=== PATIENT | female | born 1945 | race Caucasian/White ===

== ENCOUNTER 2020-07-10 11:22 | Outpatient (CLI) | payer MEDICARE, SELFPAY | END 2020-07-10 11:23 | disposition home or self-care (01) | LOC: CHSLAB 11:29 | PROVIDERS: PCP Family Medicine; Visit Provider Specialist | DX: C43.62 Malignant melanoma of left upper limb, including shoulder (principal) | CPT/HCPCS: 88305; 88342 ==

== ENCOUNTER → 2020-08-29 09:59 | Outpatient (CLI) | payer MEDICARE, SELFPAY ==
--- NOTE | ~2020-08-29 | MM_ITS ---
EXAMINATION: MM screening talia BI w mirna HISTORY: Screening mammogram TECHNIQUE: Craniocaudal and mediolateral oblique 3-D tomosynthesis images were obtained and synthetic 2-D images were generated. CAD analysis was submitted and interpreted. COMPARISON: , 01/22/2018, 01/03/2017 bilateral digital screening mammogram examinations BREAST PARENCHYMAL COMPOSITION: There are scattered areas of fibroglandular density. FINDINGS: There is no evidence of suspicious mass, calcification, or architectural distortion to sugg est malignancy in either breast. There has been no suspicious interval change. IMPRESSION: 1. No mammographic evidence of malignancy. 2. Recommend routine screening mammography in one year. BI-RADS Category 1: Negative Reviewed, dictated and finalized at location A. 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
== END ==
PROVIDERS: PCP Family Medicine; Visit Provider Obstetrics & Gynecology Gynecology
DX: Z12.31 Encounter for screening mammogram for malignant neoplasm of breast (principal)
CPT/HCPCS: 77063; 77067

== ENCOUNTER → 2021-10-25 13:18 | Outpatient (CLI) | payer MEDICARE, SELFPAY ==
--- NOTE | ~2021-10-25 | MM_ITS ---
EXAMINATION: MM screening talia BI w mirna HISTORY: Screening mammogram TECHNIQUE: Craniocaudal and mediolateral oblique 3-D tomosynthesis images were obtained and synthetic 2-D images were generated. Bilateral rotated lateral CC views. CAD analysis was submitted and interp reted. COMPARISON: August 29, 2020, March 03, 2019, January 22, 2018 bilateral screening mammogram examinati ons BREAST PARENCHYMAL COMPOSITION: FINDINGS: There is no evidence of suspicious mass, calcification, or architectural distortion to sugg est malignancy in either breast. There has been no suspicious interval change. IMPRESSION: 1. No mammographic evidence of malignancy. 2. Recommend routine screening mammography in one year. BI-RADS Category 1: Negative Reviewed, dictated and finalized at location A.
== END ==
PROVIDERS: PCP Family Medicine; Visit Provider Obstetrics & Gynecology Gynecology
DX: Z12.31 Encounter for screening mammogram for malignant neoplasm of breast (principal)
CPT/HCPCS: 77063; 77067

== ENCOUNTER 2022-01-02 14:49 | Outpatient (RCR) | payer MEDICARE, SELFPAY ==
--- NOTE | 2022-01-02 16:07 | PTOPEVAL ---
Thank you for referring Kym Rivas to [facility].? The patient is scheduled to be seen for therapy? __3__x/week for 12 visits. Please review, sign, date and return this plan of care EVI. I agree with and certify that the following plan of care is medically necessary. Referring Physician Date Admitting Provider: Attending Provider: Michael Gonzalez Referring Provider: *PT Outpatient Evaluation Start: 01/02/22 14:55 Freq: Status: Active Protocol: Document 01/02/22 14:55 MAY (Rec: 01/02/22 16:06 MAY [id number]) Therapy Assessment Status Assessment Status Assessment Status Evaluation Evaluation Information Problem Diagnosis ITB tendinitis of left side Onset 12/27/21 Subjective Information Pt. reports she has had on/off Query Text:As Reported By Patient/ outside knee pain since Family having knee replacement in 2019. Pt. reports that pain is most notable with steps and walking. She reports that the pain remains at the same intensity with activity. she states that she is still able to complete all IADL's despite her knee pain. She reports that she can only walk about 1 block due to pain. She has recently resorted to use of a cane for longer distance due to pain. she reports that her goal for therapy is to decraese her knee pain with activity. Prior Level of Function Activity Level (Last 3 Months) Occupation retired Hand Dominance Right Activity of Daily Living Ability Independent Indoor/Home Mobility Independent Community Mobility Independent Stairs Ability Independent Functional Cognition (Planning, Shopping Independent , Taking Medications) Cooking Yes Cleaning Yes Laundry Yes Shopping Yes Driving Yes Pain Assessment Timing of Pain Assessment Timing of Pain Assessment Pre-Treatment Pain Scale Pain Scale Used Numeric (1 - 10) Self Report Pain Assessment Left Knee(s) Reported Pain Level 0 Greatest Pain Intensity 10 Pain Aggravating Factors Exercise/Activity,Stair Climbing,Weight Bearing/
== END 2022-02-04 11:30 | disposition home or self-care (01) ==
LOC: CHSPT 14:49
DX: Z96.652 Presence of left artificial knee joint (principal); M76.32 Iliotibial band syndrome, left leg
CPT/HCPCS: 97014; 97110; 97112; 97140; 97161; G0283

== ENCOUNTER → 2022-12-11 13:26 | Outpatient (CLI) | payer MEDICARE, SELFPAY ==
--- NOTE | ~2022-12-11 | MM_ITS ---
EXAMINATION: MM screening talia BI w mirna HISTORY: Screening TECHNIQUE: Craniocaudal and mediolateral oblique 3-D tomosynthesis images were obtained and synthetic 2-D images were generated. CAD analysis was submitted and interpreted. COMPARISON: Comparison to multiple prior studies sequentially, with oldest reviewed study dated 08/24. BREAST PARENCHYMAL COMPOSITION: There are scattered areas of fibroglandular density. FINDINGS: There is no evidence of suspicious mass, calcification, or architectural distortion to sugg est malignancy in either breast. There has been no suspicious interval change. IMPRESSION: 1. No mammographic evidence of malignancy. 2. Recommend routine screening mammography in one year. BI-RADS Category 1: Negative Reviewed, dictated and finalized at location A.
== END ==
PROVIDERS: PCP Obstetrics & Gynecology Gynecology; Visit Provider Obstetrics & Gynecology Gynecology
DX: Z12.31 Encounter for screening mammogram for malignant neoplasm of breast (principal)
CPT/HCPCS: 77063; 77067

== ENCOUNTER 2023-04-13 08:16 | Outpatient (CLI) | payer MEDICARE, SELFPAY ==
--- NOTE | ~2023-04-13 | XR_ITS ---
EXAMINATION: XR foot RT min 3V DATE: 04/13/2023 08:38 INDICATION: Right foot pain. TECHNIQUE: 4 views of right foot including weightbearing views were obtained. COMPARISON: None. FINDINGS: There is medial subluxation of second proximal phalanx with respect to the metatarsal. Ther e is lateral subluxation of second metatarsal with respect to intermediate cuneiform, consistent with Lisfranc ligament tear. There is an old healed fracture of diaphysis of fourth metatarsal. There is severe osteoarthritis of first-fourth tarsometatarsal joints. There is severe osteoarthritis of the n aviculocuneiform joints and moderate osteoarthritis of talonavicular joint. There is mild osteoarthri tis of many of the interphalangeal joints. IMPRESSION: 1. Polyarticular osteoarthritis. Reviewed, dictated and finalized at location A.
== END 2023-04-13 08:17 | disposition home or self-care (01) ==
LOC: CHSIMG 08:19
PROVIDERS: PCP Family Medicine; Visit Provider Orthopaedic Surgery
DX: M79.671 Pain in right foot (principal); M19.071 Primary osteoarthritis, right ankle and foot
CPT/HCPCS: 73630

== ENCOUNTER 2023-07-16 01:52 | Day surgery (SDC) | payer MEDICARE, SELFPAY ==
--- NOTE | 2023-07-13 10:51 | PC.NURSE ---
Report to the Outpatient Waiting Room, entrance under the green pavilion located off [facility], at time __0600 on date ___07/16/23____. Planned Procedure Time: __0730 . Time changes happen often and if your time is changed the preop area will call you the afternoon before. - You and your visitor will be asked to self-screen and do not enter if you have any COVID symptoms. - A mask is optional within the hospital at this time. Patients may have clear liquids (water, carbonated beverages, clear teas, apple juice) until 3 hours prior to surgery ( 4:30AM )with a maximum of 20 ounces. - No food from midnight until time of surgery - Infants may have breast milk until 4 hours before surgery, formula 6 hours prior to surgery. - Children will be allowed to drink immediately following surgery. If applicable, please bring a bottle or sippy cup to assist with drinking. Juice, water, soda, and popsicles are readily available. For infants on formula, please bring formula the day of surgery. Pacifiers are allowed. Take the following medications with a SIP of water the morning of surgery: ____SYNTHROID DO NOT STOP ANY OF YOUR OTHER PRESCRIPTION MEDICATIONS PRIOR TO SURGERY ?EXCEPT THE FOLLOWING Medications to discontinue per physician ____ALL VITAMINS AND SUPPLEMENTS 3 DAYS PRE OP .LAST DOSE 07/12/23 Please no make-up, nail ukrainian, hairspray, perfume, deodorant, or body powder the day of surgery. No jewelry (including any body piercings) or valuables the day of surgery, leave them at home. Please take a shower or bath the night before, or the morning of, surgery with an antibacterial soap. Wear comfortable, loose fitting clothing. Children are encouraged to wear pajamas. - Jewelry must be removed prior to entering the operating room. Rings and piercings that are not removed may be cut off. - The hospital will not accept responsibility for valuables. - Please leave all valuables, including medications, at home the day of surgery. If you are going home after surgery, a licensed dinkey driver must drive you home. - NO public transportation without another adult if you receive anesthesia. - We recommend that an adult stay with you for 24 hours following discharge. - We also recommend that you do not drive, make important decision, drink alcoholic beverages, or take any drugs that were not prescribed by your health care provider for at least 24 hours after your discharge time. Follow any additional instructions given to you from your surgeon. If you or anyone in your household have experienced Covid symptoms in the past week, please notify your surgeon or the nurse liaison at the phone number below for possible testing. Telephone instructions given to ___PATIENT and asked if any additional questions and then verbalized understanding. Patient advised to call surgeon office or pre surgery nurse liaison [phone] if any additional questions.
[2023-07-13 10:56] VITALS: BMI 19.9
--- NOTE | 2023-07-14 15:28 | PM.IMHP ---
H&P: HPI History of Present Illness Date/Time: 07/14/23 15:28 Chief Complaint: right foot pain and deformity Narrative: 77yo woman c/o right foot pain. H/O previous toe surgery. Recurrence of deformity lesser toes. Problems with shoeware and activity. At risk for ulceration and infection. Review of Systems Constitutional: Constitutional: Denies fever(s) Eyes: Eyes: Denies blurry vision ENT: Reports Normal hearing present Cardiovascular: Cardiovascular: Denies chest pain and Denies dyspnea Respiratory: Respiratory: Denies dyspnea and Denies wheezing Gastrointestinal: Gastrointestinal: Denies abdominal pain Genitourinary: Genitourinary: Denies urinary urgency Musculoskeletal: Musculoskeletal: Reports as per HPI and Denies numbness Integumentary/Breasts: Skin/Breast: Denies changing lesions and Denies sores Neurologic: Reports Normal hearing present, Denies behavioral changes, Denies confusion, Denies numbness and Denies convulsions Psychiatric: Psychiatric: Denies behavioral changes, Denies confusion and Denies hallucinations Endocrine: Endocrine: Denies heat intolerance Hematologic/Lymphatic: Hematologic/Lymphatic: Denies easy bleeding Allergic/Immunologic: Allergic/Immunologic: Denies wheezing PMF Past Medical History Medical History Arthritis of foot, 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 Melanoma (~2020) Surgical History Surgical History History of left hip replacement (~2018) History of right hip replacement (~2017) Family History Family History Sibling Patient's sister is in good health, Onset Age: 64 Family history of malignant neoplasm of thyroid, Onset Age: 26 Mother Family history of malignant neoplasm of breast in first degree relative, Onset Age: 80 Grandparent Family history of throat cancer Other Family history of arthritis Family history of malignant neoplasm Social History Social History Smoking packs per day: 0.5 Smoking cigarettes per day: 10.0 Years smoked: 5 Smoking pack-years: 2.50 Smoking status: Former smoker Tobacco type: cigarettes Smoking end date: 07/06/95 Alcohol intake: current Alcohol use details: rarely Substance use: never Living arrangements: with family Occupation/Education: occupation 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 Gender identity (if verbalized by the patient): Female Spiritual care concerns: No Meds Home Medications and Allergies Home Medications Medication Instructions Recorded Confirmed Type calcium carbonate 600 mg-vitamin 1 tablet PO DAILY 07/13/23 07/13/23 History D3 10 mcg (400 unit) tablet (Calcium 600 + D(3)) celecoxib 100 mg capsule (Celebrex) 100 mg PO PRN PRN Pain 07/13/23 07/13/23 History coQ10 (ubiquinol) 200 mg capsule 200 mg PO DAILY 07/13/23 07/13/23 History cranberry 400 mg capsule 400 mg PO DAILY 07/13/23 07/13/23 History levothyroxine 75 mcg tablet 75 mcg PO DAILY 07/13/23 07/13/23 History (Synthroid) lysine 500 mg tablet 400 mg PO DAILY 07/13/23 07/13/23 History tramadol 50 mg tablet 50 mg PO PRN PRN Pain 07/13/23 07/13/23 History turmeric 400 mg capsule 400 mg PO DAILY 07/13/23 07/13/23 History vit A 7,160 unit-vit C 113 mg-vit 1 tablet PO DAILY 07/13/23 07/13/23 History E 100 sxva-vwad-wseczh tablet Allergies Allergy/AdvReac Type Severity Reaction Status Date / Time No Known Allergies Allergy Unverified 07/13/23 10:34 Exam Const: General: healthy appearing; No in distress or confusion Orientation/consciousness: oriented to person, oriented to place, oriented to time and No confusion HENMT: Head: normal to inspection, normocephalic and atraumatic Eyes: Conjunctivae: conj
[2023-07-16] VITALS (7 sets, daily range): BP systolic 114–134; BP diastolic 57–69; PULSE 64–72; RESP 12–18; TEMP 36.9–37.1; O2SAT 99–100
--- NOTE | ~2023-07-16 | XR_ITS ---
EXAMINATION: XR surgery orthopedic DATE: 07/16/2023 08:58 INDICATION: Right forefoot arthritis. TECHNIQUE: 4 intraoperative spot fluoroscopic views of the right foot were obtained. I was not presen t. Fluoroscopy exposure time was 14 seconds. COMPARISON: Right foot radiographs 04/13/2023 FINDINGS: There are changes of resection of the heads of the second-fifth metatarsals. There are mann ges of bladder sections at the second-fifth proximal interphalangeal joints. There are wires through the second-fifth rays. IMPRESSION: 1. Bone resections at the second-fifth metatarsophalangeal joints and proximal interphalangeal joints with wire fixation. Reviewed, dictated and finalized at location A. ETER
[2023-07-16] MEDS: KETOROLAC 15 MG/ML VIAL (*BKC) IV PUSH (06:49)
[2023-07-16] MEDS: LACTATED RINGERS 1,000 ML 30 ML IV CONT ×2 (06:49→09:10)
[2023-07-16] MEDS: ACETAMINOPHEN 500 MG TABLET 1000 MG PO (06:49)
--- NOTE | 2023-07-16 06:58 | WPDHPUPDATE1 ---
History and Physical Update Update Date/Time: 07/16/23 06:58 History and Physical has been reviewed, including an updated exam of the patient. There are NO changes in the patient's condition. Risks, benefits, and alternatives have been discussed and questions answered. Patient agrees to proceed with procedure.
--- NOTE | 2023-07-16 07:12 | WPDANESEPPF ---
Anes - Initial Pre Proc Eval Procedure: Operation Date: 07/16/23 07:30 Proposed Procedures p Right Foot Metatarsal Head Resection Two-Five, - Justin Tobar MD s Proximal Interphalangeal Arthrodesis Toes Two-Five - Justin Tobar MD Date/Time: 07/16/23 07:12 Surgeon: Justin Tobar MD Pre Op Diagnosis: arthritis right foot forefoot Patient Data Age: 78 Gender: F Height: 1.52 m Weight: 47 kg Last Vital Signs Temp 36.9 C 07/16/23 06:21 Pulse 65 07/16/23 06:21 Resp 18 07/16/23 06:21 BP 114/57 L 07/16/23 06:21 Pulse Ox 100 07/16/23 06:21 O2 Del Method Room Air 07/16/23 06:21 Allergies Allergy/AdvReac Type Severity Reaction Status Date / Time No Known Allergies Allergy Unverified 07/16/23 06:56 Home Medications Medication Instructions Recorded Confirmed Type calcium carbonate 600 mg-vitamin 1 tablet PO DAILY 07/13/23 07/16/23 History D3 10 mcg (400 unit) tablet (Calcium 600 + D(3)) celecoxib 100 mg capsule (Celebrex) 100 mg PO PRN PRN Pain 07/13/23 07/16/23 History coQ10 (ubiquinol) 200 mg capsule 200 mg PO DAILY 07/13/23 07/16/23 History cranberry 400 mg capsule 400 mg PO DAILY 07/13/23 07/16/23 History levothyroxine 75 mcg tablet 75 mcg PO DAILY 07/13/23 07/16/23 History (Synthroid) lysine 500 mg tablet 400 mg PO DAILY 07/13/23 07/16/23 History tramadol 50 mg tablet 50 mg PO PRN PRN Pain 07/13/23 07/16/23 History turmeric 400 mg capsule 400 mg PO DAILY 07/13/23 07/16/23 History vit A 7,160 unit-vit C 113 mg-vit 1 tablet PO DAILY 07/13/23 07/16/23 History E 100 hhzz-fukz-bqgyqx tablet Patient hx anesthesia problems: post op nausea/vomiting Family hx anesthesia problems: none Results Review: All pre-operative results and documents have been reviewed as part of the pre-operative evaluation. 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 Melanoma (~2020) Surgical History Surgical History History of left hip replacement (~2018) History of right hip replacement (~2017) Family History Family History Sibling Patient's sister is in good health, Onset Age: 64 Family history of malignant neoplasm of thyroid, Onset Age: 26 Mother Family history of malignant neoplasm of breast in first degree relative, Onset Age: 80 Grandparent Family history of throat cancer Other Family history of arthritis Family history of malignant neoplasm Social History Social History Smoking packs per day: 0.5 Smoking cigarettes per day: 10.0 Years smoked: 5 Smoking pack-years: 2.50 Smoking status: Former smoker Tobacco type: cigarettes Smoking end date: 07/06/95 Alcohol intake: current Alcohol use details: rarely Substance use: never Living arrangements: with family Occupation/Education: occupation 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 Informed Consent: The patient's anesthetic plan and its attendant risks and benefits were discussed with the patient/family/POA. Questions were solicited and answers provided to the satisfac
[2023-07-16] MEDS: ceFAZolin 2 GM/D5W 50 ML 2 GM/50 ML BAG IVPB (07:27)
[2023-07-16] MEDS: BUPivacaine HCL 0.5% 10 ML AMP 20 ML INFILTRATE (07:48)
--- NOTE | 2023-07-16 09:22 | W.PM.PROC2 ---
Procedure Note - Detailed Date of Procedure 07/16/23 Pre-op Diagnosis arthritis right foot forefoot Post-op Diagnosis Same Procedure Performed Right foot Metatarsal head resection 2 through 5, proximal interphalangeal joint arthrodesis 2 through 5. Surgeon Justin Tobar MD Industrial Manufacturing Technician 1st conventions assistant Anesthesia General Indications 78-year-old woman with severe arthritis and deformity of the right foot lesser toes. Unable to wear shoes and difficulty with activity. Presents now for operative treatment. Description of Procedure Patient identified in the preoperative holding. Informed consent given. Operative extremity marked. Patient received intravenous antibiotics. Patient brought to the operating room where underwent general anesthetic by anesthesia team. Positioned supine on operating room table. Time-out performed confirming the patient, site of the surgery and the plan. right foot prepped draped usual sterile surgical fashion using ChloraPrep skin solution. Foot exsanguinated and calf tourniquet inflated to 225 mmHg. 0.5% Marcaine plain local anesthetic used for each toe. The metatarsal head resection was performed through 2 longitudinal incisions. 1 was placed between the 2nd and 3rd metatarsal in the other from 4th and 5th metatarsal along the dorsum of the foot. These were made with 15 blade knife. Hemostasis controlled electrocautery. dissection carried the 2nd metatarsal phalangeal joint and the metatarsal head exposed. Sagittal saw used to resect the metatarsal head. The and was smoothed with a rongeur. Dissection then carried to the 3rd metatarsal head and again exposure made had resected with a sagittal saw and smoothed with a rongeur. These were then thoroughly irrigated. From the lateral incision a 4th metatarsal head was exposed and resected with a sagittal saw and smoothed with a rongeur. The 5th metatarsal head was then exposed resected with sagittal saw and smoothed with a rongeur. Dorsal longitudinal incisions were made over the proximal interphalangeal joint of the 2nd, 3rd, 4th, 5th toe. Joint exposed by releasing the medial and lateral collateral ligaments. Distal end of the proximal phalanx resected with a bone cutter. The articular surface of the middle phalanx resected with a rongeur. Thorough irrigation was then done. Fixation was achieved with K-wires placed in intramedullary fashion verified with image intensification. Wounds thoroughly irrigated and the capsules were closed with 3-0 Monocryl interrupted suture. Skin repaired with 4-0 nylon running and interrupted suture. Sterile dressing applied. The patient was then woken from anesthesia, extubated and taken to the recovery room in stable condition. All sponge, needle, instrument counts were correct at the end of the case. Implants 0.062 in K-wire x2, 0.045 in K-wire x2 Estimated Blood Loss 5 Tourniquet Time Total Tourniquet Time: 75 Drains No Packing No Pathology None sent Complications None Condition Stable Disposition PACU [facility] Billing Surgery - Charge Forward: Surgery Billing ([id number], [id number] X 4)
== END 2023-07-16 10:55 | disposition home or self-care (01) ==
PROVIDERS: PCP Family Medicine; Visit Provider Orthopaedic Surgery
PROC: (CPT 28104; principal; 2023-07-16 07:30)
PROC: (CPT 28750; 2023-07-16 07:30)
DX: M19.071 Primary osteoarthritis, right ankle and foot (principal); M20.5X1 Other deformities of toe(s) (acquired), right foot; M20.41 Other hammer toe(s) (acquired), right foot; Z87.891 Personal history of nicotine dependence
CPT/HCPCS: 28112 ×3; 28113; 28285 ×4; 99199; A9270; C1713; J0690; J1100; J1885; J2371; J2405; J2704; J3010; J7120

== ENCOUNTER 2023-07-20 07:45 | Outpatient (CLI) | payer MEDICARE, SELFPAY ==
--- NOTE | ~2023-07-20 | XR_ITS ---
XR foot RT min 3V DATE: 07/20/2023 08:07 INDICATION: Right foot surgery 07/16/2023 TECHNIQUE: 3 views COMPARISON: 07/16/2023 right foot 04/13/2023 right foot FINDINGS: There are orthopedic pins extending longitudinally through the length of the phalanges and metatarsal bones of the second through fifth rays, the second) terminating in the intermediate cuneif orm bone, the other pins terminating in the base of the respective metatarsal bones, with surgical re sections noted at the metatarsal bones and phalanges, resulting in better alignment and straightening of the second through fifth digits. Severe osteoarthritic changes are noted at the tarsal and tarsometatarsal joints. There is soft tissue swelling of the foot, particularly along the dorsum of the forefoot. IMPRESSION: Postoperative change of second through fifth rays Polyarticular osteoarthritis Reviewed, dictated and finalized at location B. 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
== END 2023-07-20 07:46 | disposition home or self-care (01) ==
LOC: CHSIMG 07:48
PROVIDERS: PCP Family Medicine; Visit Provider Orthopaedic Surgery
DX: M79.671 Pain in right foot (principal); M19.071 Primary osteoarthritis, right ankle and foot; Z98.890 Other specified postprocedural states
CPT/HCPCS: 73630

== ENCOUNTER 2023-08-17 08:30 | Outpatient (CLI) | payer MEDICARE, SELFPAY ==
--- NOTE | ~2023-08-17 | XR_ITS ---
XR foot RT min 3V DATE: 08/17/2023 08:45 INDICATION: Right pubic aftercare TECHNIQUE: 3 views COMPARISON: 07/20/2023 right foot FINDINGS: There is considerable improvement of the previously noted soft tissue swelling of the foot since 07/20/2023. The orthopedic pin has been removed from the second ray, the fourth digit pin is withdrawn approximat marjorie 2 mm and the fifth digit and withdrawn approximately 10 mm. Presumed postsurgical changes at the second through fifth metatarsal bones. Diffuse osteopenia. Severe polyarticular osteoarthritis. IMPRESSION: Partial pin withdrawals Reviewed, dictated and finalized at location B. TRIMMER IMPRESSION: Partial pin withdrawals
== END 2023-08-17 08:31 | disposition home or self-care (01) ==
LOC: CHSIMG 08:33
PROVIDERS: PCP Family Medicine; Visit Provider Orthopaedic Surgery
DX: M79.671 Pain in right foot (principal); Z47.89 Encounter for other orthopedic aftercare
CPT/HCPCS: 73630

== ENCOUNTER 2024-04-14 13:08 | Outpatient (CLI) | payer MEDICARE, SELFPAY ==
--- NOTE | ~2024-04-14 | MM_ITS ---
EXAMINATION: MM screening talia BI w mirna HISTORY: Screening TECHNIQUE: Craniocaudal and mediolateral oblique 3-D tomosynthesis images were obtained and synthetic 2-D images were generated. CAD analysis was submitted and interpreted. COMPARISON: Comparison to multiple prior studies sequentially, with oldest reviewed study dated 07/2016. BREAST PARENCHYMAL COMPOSITION: Dense: The breasts are heterogeneously dense, which may obscure small masses FINDINGS: There is no evidence of suspicious mass, calcification, or architectural distortion to sugg est malignancy in either breast. There has been no suspicious interval change. IMPRESSION: 1. No mammographic evidence of malignancy. 2. Recommend routine screening mammography in one year. BI-RADS Category 1: Negative Reviewed, dictated and finalized at location B.
== END 2024-04-14 13:09 | disposition home or self-care (01) ==
LOC: MICIMG 13:10
PROVIDERS: PCP Family Medicine; Visit Provider Obstetrics & Gynecology Gynecology
DX: Z12.31 Encounter for screening mammogram for malignant neoplasm of breast (principal)
CPT/HCPCS: 77063; 77067

== ENCOUNTER 2025-04-17 12:29 | Outpatient (CLI) | payer MEDICARE, SELFPAY ==
--- NOTE | ~2025-04-17 | MM_ITS ---
EXAMINATION: MM screening [facility] BI w mirna HISTORY: Screening TECHNIQUE: Craniocaudal and mediolateral oblique 3-D tomosynthesis images were obtained and synthetic 2-D images were generated. CAD analysis was submitted and interpreted. COMPARISON: 04/14/2024 and 12/11/2022 BREAST PARENCHYMAL COMPOSITION: The breasts are heterogeneously dense, which may obscure small masses. FINDINGS: There is no evidence of suspicious mass, calcification, or architectural distortion to suggest malignancy. There has been no suspicious interval change. IMPRESSION: 1. No mammographic evidence of malignancy. Recommend routine screening mammography in one year. BI-RADS Category 2: Benign finding(s) Reviewed, dictated and finalized at location Q. IMPRESSION: 1. No mammographic evidence of malignancy. Recommend routine screening mammogra phy in one year. BI-RADS Category 2: Benign finding(s)
== END 2025-04-17 12:30 | disposition home or self-care (01) ==
PROVIDERS: PCP Family Medicine; Visit Provider Family Medicine
DX: Z12.31 Encounter for screening mammogram for malignant neoplasm of breast (principal)
CPT/HCPCS: 77063; 77067